=== PATIENT | female | born 1960 ===

== ENCOUNTER → 2021-02-19 | Outpatient (CLI) | payer BC | END | disposition home or self-care (01) | LOC: LAB 15:30 → LAB SHORT 15:30 → LAB FUT 02-18 15:10 | DX: E78.49 Other hyperlipidemia (principal); K58.9 Irritable bowel syndrome, unspecified; R53.83 Other fatigue | CPT/HCPCS: 83993 ==

== ENCOUNTER 2021-05-24 09:49 | Day surgery (SDC) | payer BC ==
[~2021-05-24] VITALS: Ht 157.5 cm; Wt 62.1 kg
[~2021-05-24 09:49] MED LIST: AMPDEX30CR PO; AZELASTINE137 MCG/01; Aspir 8181 MG PO; DULO60 PO; ESZO2 PO; HYOS.125 SL; MYRBETRIQ50 MG PO; PANT40 PO; RIZATRIPTAN10 MG SL; TOPI100 PO; TRAZ100 PO
== END 2021-05-24 11:40 | disposition home or self-care (01) ==
LOC: ORSCSDS 09:49
PROVIDERS: Student in an Organized Health Care Education/Training Program
PROC: 0DBN8ZX Excision of Sigmoid Colon, Via Natural or Artificial Opening Endoscopic, Diagnostic (ICD-10-PCS; principal; 2021-05-24 11:00)
DX: R19.4 Change in bowel habit (principal); R10.9 Unspecified abdominal pain; D12.5 Benign neoplasm of sigmoid colon; Z79.82 Long term (current) use of aspirin; Z79.899 Other long term (current) drug therapy
CPT/HCPCS: 88305; J2704; J7120